=== PATIENT | male | born 1960 | race Caucasian/White ===

== ENCOUNTER 2022-04-13 06:51 | Day surgery (SDC) | payer OTHER ==
[~2022-04-13] VITALS: Ht 167.6 cm; Wt 70.3 kg
[2022-04-13] MEDS ORDERED: diphenhydrAMINE 50 MG/ML VIAL ONE (07:54)
[2022-04-13] MEDS ORDERED: fentaNYL citrate 0.05 MG/ML VIAL ONE (07:54)
[2022-04-13] MEDS ORDERED: LIDOCAINE 2% 100 MG/5 ML UJET TP ONE (07:55)
[2022-04-13] MEDS ORDERED: MIDAZOLAM 2 MG/2 ML VIAL ONE (07:55)
[2022-04-13] MEDS ORDERED: fentaNYL citrate 0.05 MG/ML VIAL IVP ONE (08:50)
== END 2022-04-13 08:55 | disposition home or self-care (01) ==
LOC: MMU 06:51 → MDS 06:51
PROVIDERS: ATTEND Internal Medicine Gastroenterology
DX: Z12.11 Encounter for screening for malignant neoplasm of colon (principal); K21.9 Gastro-esophageal reflux disease without esophagitis; Z20.822 Contact with and (suspected) exposure to COVID-19; Z80.0 Family history of malignant neoplasm of digestive organs; Z79.899 Other long term (current) drug therapy
CPT/HCPCS: 45378; 87426; J3010; J1200; J2250

== ENCOUNTER 2023-07-03 16:30 | Inpatient (IN) | payer OTHER ==
[~2023-07-03] VITALS: Ht 167.6 cm; Wt 73.9 kg
[2023-07-03 16:35] VITALS: BP 107/67; PULSE 80; RESP 17; TEMP 98.3; O2SAT 96
[2023-07-03 19:30] LABS: BASOPHILS % (AUTO) 0.3 % (0.0-2.0); EOSINOPHILS # (AUTO) 0.6 K/uL (0-0.4); EOSINOPHILS % (AUTO) 4.7 % (0.0-4.0); HEMATOCRIT 37.8 % (36-52); HEMOGLOBIN 12.5 g/dL (12.0-18.0); LYMPHOCYTES # (AUTO) 2.2 K/uL (2.0-11.5); LYMPHOCYTES % (AUTO) 16.6 % (20.5-51.1); MEAN CORPUSCULAR HEMOGLOBIN 30 pg (27-31); MEAN CORPUSCULAR HGB CONC 33 g/dL (33-37); MEAN CORPUSCULAR VOLUME 91.8 fL (80-94); MONOCYTES # (AUTO) 1.3 K/uL (0.8-1.0); MONOCYTES % (AUTO) 9.9 % (1.7-9.3); NEUTROPHILS # (AUTO) 8.9 K/uL (1.8-7.7); NEUTROPHILS % (AUTO) 68.5 % (42.2-75.2); PLATELET COUNT (AUTO) 247 K/uL (140-450); RED BLOOD CELL COUNT(AUTO) 4.11 MIL/uL (4.20-6.10); RED CELL DISTRIBUTION WIDTH 11.7 % (11.6-13.7); WHITE BLOOD COUNT (AUTO) 13.1 K/uL (4.8-10.8)
[2023-07-03 19:36] LABS: ANION GAP 10.6 (8-16); CALCIUM 8.8 mg/dL (8.5-10.1); CARBON DIOXIDE 30.8 mmol/L (21-32); CREATININE 0.8 mg/dL (0.6-1.3); POTASSIUM 3.4 mmol/L (3.5-5.1)
[2023-07-03] MEDS ORDERED: ACETAMINOPHEN 325 MG TAB PO PRN (19:50)
[2023-07-03] MEDS ORDERED: MORPHINE SULFATE 2 MG/ML SYR IVP PRN (19:50)
[2023-07-03] MEDS ORDERED: ONDANSETRON 4 MG/2 ML VIAL IVP PRN (19:50)
[2023-07-03] MEDS ORDERED: cefTRIAXone 500 MG VIAL ONE (20:13)
[2023-07-03] MEDS ORDERED: PIPERACILLIN/TAZOBACTAM 3.375 GM in DEXTROSE 5% 50 ML IV SCH (21:00)
[2023-07-03 22:00] VITALS: BP 106/61; PULSE 79; RESP 17; TEMP 98.6; O2SAT 96
[2023-07-03] MEDS: NACL 0.9% 1,000 ML IV SCH (22:17)
[2023-07-03 23:02] VITALS: PULSE 79; RESP 17; O2SAT 96
[2023-07-03] MEDS ORDERED: PIPERACILLIN/TAZOBACTAM 3.375 GM VIAL IV ONE (23:53)
[2023-07-04] MEDS ORDERED: PIPERACILLIN/TAZOBACTAM 3.375 GM in DEXTROSE 5% 50 ML IV SCH ×2
[2023-07-04 00:07] VITALS: BP 113/63; PULSE 86; RESP 17; TEMP 100.4; O2SAT 98
[2023-07-04] MEDS: NACL 0.9% 1,000 ML IV SCH ×2 (04:26→11:50)
[2023-07-04 05:15] VITALS: BP 95/56; PULSE 86; RESP 17; TEMP 98.6; O2SAT 98
[2023-07-04 07:03] LABS: BASOPHILS % (AUTO) 0.4 % (0.0-2.0); EOSINOPHILS # (AUTO) 0.5 K/uL (0-0.4); EOSINOPHILS % (AUTO) 4.6 % (0.0-4.0); HEMATOCRIT 34.7 % (36-52); HEMOGLOBIN 11.5 g/dL (12.0-18.0); LYMPHOCYTES # (AUTO) 2.2 K/uL (2.0-11.5); LYMPHOCYTES % (AUTO) 19.4 % (20.5-51.1); MEAN CORPUSCULAR HEMOGLOBIN 30 pg (27-31); MEAN CORPUSCULAR HGB CONC 33 g/dL (33-37); MEAN CORPUSCULAR VOLUME 90.6 fL (80-94); MONOCYTES # (AUTO) 1.1 K/uL (0.8-1.0); MONOCYTES % (AUTO) 9.9 % (1.7-9.3); NEUTROPHILS # (AUTO) 7.4 K/uL (1.8-7.7); NEUTROPHILS % (AUTO) 65.7 % (42.2-75.2); PLATELET COUNT (AUTO) 230 K/uL (140-450); RED BLOOD CELL COUNT(AUTO) 3.83 MIL/uL (4.20-6.10); WHITE BLOOD COUNT (AUTO) 11.2 K/uL (4.8-10.8)
[2023-07-04 07:35] LABS: ALBUMIN 2.8 g/dL (3.4-5.0); ANION GAP 12.1 (8-16); CALCIUM 8.5 mg/dL (8.5-10.1); CARBON DIOXIDE 24.7 mmol/L (21-32); CREATININE 0.8 mg/dL (0.6-1.3); MAGNESIUM 1.7 mg/dL (1.8-2.4); POTASSIUM 3.8 mmol/L (3.5-5.1); TOTAL PROTEIN, SERUM 7.2 g/dL (6.4-8.2)
[2023-07-04 08:00] VITALS: BP 105/59; PULSE 72; RESP 18; TEMP 98.7; O2SAT 96
[2023-07-04] MEDS: PIPERACILLIN/TAZOBACTAM 3.375 GM in DEXTROSE 5% 50 ML IV SCH ×2 (08:33→13:30)
[2023-07-04] MEDS ORDERED: HYDROGEN PEROXIDE 3% 240 ML BTL TP ONE (09:15)
[2023-07-04] MEDS ORDERED: MIDAZOLAM 5 MG/5 ML VIAL ONE (09:15)
[2023-07-04] MEDS ORDERED: fentaNYL citrate 0.05 MG/ML VIAL ONE (09:16)
[2023-07-04] MEDS ORDERED: PROPOFOL 200 MG/20 ML VIAL IV ONE (09:16)
[2023-07-04 09:24] LABS: INR 1.07 (0.8-1.2); PARTIAL THROMBOPLASTIN TIME 29.6 secs (22-35.6); PROTHROMBIN TIME 11.2 secs (10.8-13.4)
[2023-07-04] MEDS: LIDOCAINE/EPI MPF 1%1:200000 30 ML VIAL INJ ONE ×2 (09:31→09:40)
[2023-07-04] MEDS: BUPIVACAINE-MPF 0.25% 30 ML VIAL INJ ONE ×2 (09:31→09:40)
[2023-07-04] MEDS ORDERED: HYDROmorphone 1 MG/ML AMP IVP PRN ×2 (10:00→10:10)
[2023-07-04] MEDS ORDERED: ONDANSETRON 4 MG/2 ML VIAL IVP PRN (10:00)
[2023-07-04] MEDS ORDERED: HYDROcodone/APAP 5/325 MG 1 TAB TAB PO PRN (10:10)
[2023-07-04] MEDS ORDERED: ACET-5629 PO (14:31)
== END 2023-07-04 16:50 | disposition home or self-care (01) | DRG 254 ==
LOC: MED 16:30 → MMU 19:51 → MTU 20:58
PROVIDERS: ADMIT Hospitalist; ATTEND Hospitalist
PROC: 0JBB0ZZ Excision of Perineum Subcutaneous Tissue and Fascia, Open Approach (ICD-10-PCS; principal; 2023-07-04 09:30)
DX: K60.3 Anal fistula (principal); L02.215 Cutaneous abscess of perineum
CPT/HCPCS: 36415; 71045; 80048; 80053; 83735; 85025; 85610; 85730; 87081; 93005; 99285; J0696; J1170; J2001; J2250; J2543; J2704; J3010; J3490; J7060; Q0092

== ENCOUNTER 2023-08-22 05:55 | Day surgery (SDC) | payer OTHER ==
[~2023-08-22] VITALS: Ht 167.6 cm; Wt 72.6 kg
[~2023-08-22 05:55] MED LIST: ACET-5629 PO
[2023-08-22] MEDS ORDERED: diphenhydrAMINE 50 MG/ML VIAL IVP PRN (07:25)
[2023-08-22] MEDS ORDERED: LACTATED RINGERS 1,000 ML IV SCH (07:25)
[2023-08-22] MEDS ORDERED: MEPERIDINE 25 MG/ML SYR IVP PRN (07:25)
[2023-08-22] MEDS ORDERED: ONDANSETRON 4 MG/2 ML VIAL IVP PRN (07:25)
[2023-08-22] MEDS ORDERED: ACETAMINOPHEN 100 ML IV SCH (07:25)
[2023-08-22] MEDS ORDERED: MIDAZOLAM 2 MG/2 ML VIAL ONE (07:30)
[2023-08-22] MEDS ORDERED: LIDOCAINE/EPI 1% 1:100000 20 ML VIAL INJ ONE (07:31)
[2023-08-22] MEDS ORDERED: DEXAMETHASONE 4 MG/ML VIAL ONE (07:31)
[2023-08-22] MEDS ORDERED: fentaNYL citrate 0.05 MG/ML VIAL ONE (07:31)
[2023-08-22] MEDS ORDERED: SUCCINYLCHOLINE CHLORIDE 200 MG/10 ML VIAL IVP ONE (07:31)
[2023-08-22] MEDS ORDERED: PROPOFOL 200 MG/20 ML VIAL IV ONE (07:31)
[2023-08-22] MEDS ORDERED: ROCURONIUM 50 MG/5 ML VIAL IV ONE (07:31)
[2023-08-22] MEDS ORDERED: ONDANSETRON 4 MG/2 ML VIAL ONE (07:31)
[2023-08-22] MEDS ORDERED: BUPIVACAINE-MPF 0.25% 30 ML VIAL INJ ONE (07:32)
[2023-08-22] MEDS ORDERED: SEVOFLURANE 250 ML BTL INH ONE (07:47)
[2023-08-22] MEDS ORDERED: ePHEDrine 50 MG/ML VIAL IV ONE (07:47)
[2023-08-22] MEDS ORDERED: ceFAZolin 1,000 MG VIAL ONE ×2 (07:49)
[2023-08-22] MEDS ORDERED: SODIUM 10 ML ONE ×2 (07:50)
[2023-08-22] MEDS ORDERED: metroNIDAZOLE 500 MG/NS PREMIX 100 ML IV ONE (07:51)
[2023-08-22] MEDS ORDERED: SUGAMMADEX SODIUM 200 MG/2 ML VIAL IV ONE (08:47)
[2023-08-22] MEDS: HYDROmorphone 1 MG/ML AMP IVP PRN (09:12)
[2023-08-22] MEDS ORDERED: HYDROmorphone PFS 2 MG/ML SYR ONE (09:23)
== END 2023-08-22 10:15 | disposition home or self-care (01) ==
LOC: MDS 05:55 → MMU 06:09 → MDS 10:15
PROVIDERS: ATTEND Surgery
DX: K60.3 Anal fistula (principal); K62.89 Other specified diseases of anus and rectum; Z98.890 Other specified postprocedural states; Z79.899 Other long term (current) drug therapy
CPT/HCPCS: 46030; 46288; 71045; 93005; J0330; J0690; J1100; J1170; J2001; J2250; J2405; J2704; J3010; J3490; Q0092